=== PATIENT | female | born 1970 | race Two or more races ===

== ENCOUNTER 2021-01-09 12:46 | Outpatient (CLI) | payer OTHER | END 2021-01-09 13:07 | disposition home or self-care (01) | LOC: SONOGRAMA 12:46 | PROVIDERS: ATTEND Surgery | DX: D24.2 Benign neoplasm of left breast (principal); N60.11 Diffuse cystic mastopathy of right breast; N60.12 Diffuse cystic mastopathy of left breast; R92.0 Mammographic microcalcification found on diagnostic imaging of breast ==

== ENCOUNTER 2022-04-23 13:08 | Outpatient (CLI) | payer OTHER | END 2022-04-23 13:10 | disposition home or self-care (01) | LOC: SONOGRAMA 13:08 | PROVIDERS: ATTEND Surgery | DX: N60.11 Diffuse cystic mastopathy of right breast (principal); N60.12 Diffuse cystic mastopathy of left breast ==